=== PATIENT | female | born 1940 | race Caucasian/White ===

== ENCOUNTER 2020-04-20 01:27 | Outpatient (CLI) | payer MEDICARE, SELFPAY ==
[2020-04-20 18:17] LABS: SARS-CoV-2 RNA PCR Negative
== END 2020-04-20 01:28 | disposition home or self-care (01) ==
LOC: ANHCOVIDDT 01:27
PROVIDERS: Visit Provider Internal Medicine Gastroenterology
DX: Z01.812 Encounter for preprocedural laboratory examination (principal); Z20.828 Contact with and (suspected) exposure to other viral communicable diseases
CPT/HCPCS: 87635; C9803; U0003

== ENCOUNTER 2020-04-22 01:39 | Day surgery (SDC) | payer MEDICARE, SELFPAY ==
[2020-04-14 09:29] VITALS: BMI 23.2
[2020-04-22 10:00] VITALS: BP 149/59; PULSE 66; RESP 18; TEMP 36.8; O2SAT 99; BMI 23.5
[2020-04-22] MEDS: LACTATED RINGERS 1,000 ML 150 ML IV CONT (10:24)
--- NOTE | 2020-04-22 10:25 | WPDGICN ---
Assessment and Plan Assessment and plan (1) History of colon polyps: Code(s): Z86.010 - Personal history of colonic polyps Status: Acute Assessment and Plan: Patient has a history of colon polyps removed from the colon 2016. Plan is for follow-up colonoscopy every 3-5 years. (2) Suprapubic abdominal pain: Code(s): R10.2 - Pelvic and perineal pain Status: Acute Assessment and Plan: Because of suprapubic abdominal pain colonoscopy will be performed at this time. She has had no improvement with empiric antibiotics for possible .UTI patient states she has had improvement on stopping her cholesterol-lowering medication. GI Consult Note Consult date/time: 04/22/20 10:25 HPI: Nati Singer is a 79 year old female Seen in evaluation at the request of Dr. Ethan Holley. patient has 2 in after 3 months episode of suprapubic lower abdominal pain. Treated with antibiotics empirically for microscopic hematuria. She states pain has persisted for this reason she presents for colonoscopy. Patient states her bowel habits have improved. She recently discontinued cholesterol lowering medication notices that concomitant with this the pain is begun to Improved. Past medical history is significant for colon polyps removed from the colon in 2016. Patient reports her current weight appetite bowel movements have returned to normal. Review of Systems Review of Systems: All systems reviewed & are unremarkable except as noted in HPI and below [facility] Social History Social History (System 05/25/19 @ 15:38 by Tata Cary) Smoking packs per day: 0.5 Smoking cigarettes per day: 10.0 Years smoked: 3 Smoking pack-years: 1.50 Smoking status: Former smoker Tobacco type: cigarettes Alcohol intake: current Drinks per week: 1 Substance use: never Substance use type: does not use Spiritual care concerns: No Meds Home Medications and Allergies Home Medications Medication Instructions Recorded Confirmed Type aspirin [Adult Aspirin] 81 mg PO DAILY 04/14/20 04/14/20 History atenolol 25 mg PO DAILY 04/14/20 04/14/20 History dicyclomine 10 mg PO PRN PRN 04/14/20 04/14/20 History levothyroxine [Synthroid] 88 mcg PO DAILY 04/14/20 04/14/20 History losartan 25 mg PO DAILY 04/14/20 04/14/20 History omeprazole 10 mg PO DAILY 04/14/20 04/14/20 History potassium chloride 10 meq PO DAILY 04/14/20 04/14/20 History rizatriptan 5 mg PO ONCE PRN 04/14/20 04/14/20 History triamterene-hydrochlorothiazid 1 cap PO DAILY 04/14/20 04/14/20 History Allergies Allergy/AdvReac Type Severity Reaction Status Date / Time codeine Allergy Mild Nausea and Verified 04/22/20 09:52 Vomiting Vital Signs Vital Signs - 24 hr 04/22/20 10:00 Temperature 98.2 F Pulse Rate 66 Respiratory Rate 18 Blood Pressure 149/59 H Pulse Oximetry 99 Exam Narrative: Exam Narrative: Physical exam reveals patient to be alert. Vital signs stable. HEENT exam unremarkable. Lungs are clear to auscultation and percussion. Heart is without murmur or extra sounds. Abdominal exam bowel sounds are present soft nontender with no hepatosplenomegaly. Digital external rectal exam is normal.
--- NOTE | 2020-04-22 10:27 | P.PNAN_ITS ---
Anes - Initial Pre Proc Eval Procedure: Operation Date: 04/22/20 10:30 Proposed Procedures p Screening Colonoscopy - Cristian Peasron MD Date/Time: 04/22/20 10:27 Surgeon: Cristian Pearson MD Pre Op Diagnosis: Neoplasm Screening Patient Data Age: 79 Gender: F Height: 5 ft 2 in Weight: 58.4 kg Last Vital Signs Temp 36.8 C 04/22/20 10:00 Pulse 66 04/22/20 10:00 Resp 18 04/22/20 10:00 BP 149/59 H 04/22/20 10:00 Pulse Ox 99 04/22/20 10:00 Allergies Allergy/AdvReac Type Severity Reaction Status Date / Time codeine Allergy Mild Nausea and Verified 04/22/20 09:52 Vomiting Home Medications Medication Instructions Recorded Confirmed Type aspirin [Adult Aspirin] 81 mg PO DAILY 04/14/20 04/14/20 History atenolol 25 mg PO DAILY 04/14/20 04/14/20 History dicyclomine 10 mg PO PRN PRN 04/14/20 04/14/20 History levothyroxine [Synthroid] 88 mcg PO DAILY 04/14/20 04/14/20 History losartan 25 mg PO DAILY 04/14/20 04/14/20 History omeprazole 10 mg PO DAILY 04/14/20 04/14/20 History potassium chloride 10 meq PO DAILY 04/14/20 04/14/20 History rizatriptan 5 mg PO ONCE PRN 04/14/20 04/14/20 History triamterene-hydrochlorothiazid 1 cap PO DAILY 04/14/20 04/14/20 History Patient hx anesthesia problems: none Family hx anesthesia problems: none [facility] Past Medical History Medical History (Updated 04/22/20 @ 10:31 by Yash Olvera MD) HTN (hypertension) Hyperlipidemia TIA (transient ischemic attack) Social History Social History Smoking packs per day: 0.5 Smoking cigarettes per day: 10.0 Years smoked: 3 Smoking pack-years: 1.50 Smoking status: Former smoker Tobacco type: cigarettes Alcohol intake: current Drinks per week: 1 Substance use: never Substance use type: does not use Spiritual care concerns: No Anes - Eval Final PreProcedure Day of Procedure 04/22/20 10:27 Patient weight: normal Heart: regular rate and rhythm Lungs: clear to auscultation Airway: Mallampati scale class II Neurological: alert and oriented Last oral intake: >/= 8 hours ASA classification: II Emergent: no Anesthetic plan: proceed Anesthesia type and monitoring: general GIVS and standard monitoring Informed Consent: The patient's anesthetic plan and its attendant risks and benefits were discussed with the patient/family/POA. Questions were solicited and answers provided to the satisfaction of the patient/family/POA.
[2020-04-22 11:11] VITALS: BP 99/35; PULSE 59; RESP 18; O2SAT 99
[2020-04-22 11:21] VITALS: BP 99/46; PULSE 56; RESP 16; O2SAT 99
[2020-04-22 11:31] VITALS: BP 100/60; PULSE 58; RESP 18; O2SAT 99
== END 2020-04-22 11:56 | disposition home or self-care (01) ==
PROVIDERS: PCP Internal Medicine; Visit Provider Internal Medicine Gastroenterology
PROC: 0DJD8ZZ Inspection of Lower Intestinal Tract, Via Natural or Artificial Opening Endoscopic (ICD-10-PCS; CPT 45378; principal; 2020-04-22 10:30)
DX: R10.2 Pelvic and perineal pain (principal); K57.30 Diverticulosis of large intestine without perforation or abscess without bleeding; K64.8 Other hemorrhoids; Z86.010 Personal history of colon polyps; Z87.891 Personal history of nicotine dependence
CPT/HCPCS: 45378; J2704; J7120